=== PATIENT | female | born 1930 | race Caucasian/White ===

== ENCOUNTER → 2017-01-27 | Outpatient (REF) | payer MEDICARE, OTHER ==
[~2017-01-27] MED LIST: CALCTAB28 PO; CENTTAB12 PO; COUM2.5T11 PO; FEBU40TA PO; GABA-279 PO; HYDR-4267 PO; HYDR10T PO; LASI20TA PO; PRAM0.123 PO; REQU1TAB14 PO; TRAM50TA2 PO; VERA180C PO; VICO5TAB16 PO; VITA-112 PO
[2017-01-27 15:43] LABS: INR 2.58
== END ==
LOC: M LABDRAW1 15:00
PROVIDERS: ATTEND Physician Assistant
DX: M19.011 Primary osteoarthritis, right shoulder (principal); Z79.01 Long term (current) use of anticoagulants

== ENCOUNTER 2017-02-16 14:04 | Emergency (ER) | payer MEDICARE, OTHER ==
[~2017-02-16] VITALS: Ht 154.9 cm; Wt 89.8 kg
[2017-02-16] MEDS ORDERED: HYDR-3713 PO (14:36)
[2017-02-16] MEDS ORDERED: PRAD150C PO (14:36)
[2017-02-16] MEDS ORDERED: ROPI2TAB PO (14:36)
[2017-02-16] MEDS ORDERED: GABA-279 PO (14:36)
[2017-02-16 16:06] LABS: BASO % 0.3 % (0.0-1.0); EOS # 0.2 K/mm3 (0.0-0.50); EOS % 2.8 % (0.0-3.0); LARGE UNSTAINED CELL # 0.1 K/mm3 (0.0-0.4); LARGE UNSTAINED CELL % 0.9 % (0.0-4.0); LYMPH # 1.6 K/mm3 (1.5-4.5); MEAN CORPUSCULAR HEMOGLOBIN 31.2 pg (27.0-33.0); MEAN CORPUSCULAR HGB CONC 32.3 g/dl (32.0-36.5); MEAN CORPUSCULAR VOLUME 96.6 fl (80.0-96.0); MONO # 0.4 K/mm3 (0.0-0.8); NEUTROPHILS # 5.6 K/mm3 (1.8-7.7); NEUTROPHILS % 71.1 % (36.0-66.0); PLATELET COUNT, AUTOMATED 229 k/mm3 (150-450); WHITE BLOOD COUNT 7.9 K/mm3 (4.0-10.0)
--- NOTE | 2017-02-16 16:27 | REP ---
Delayed duplex ultrasound right lower extremity: Patient has swelling and redness of the right lower extremity. There are no comparison studies. At ultrasonography there is a palpable lump in the proximal right medial thigh. The deep veins demonstrate normal compression, normal Doppler color flow and normal Doppler waveforms with respiration and augmentation at multiple levels from the popliteal vein to the common femoral vein with the exception that the distal femoral vein could not be compressed because of pain and massive edema. However and there is a Doppler color flow and there are Doppler waveforms. There is no evidence of deep vein thrombus. However, the palpable lump in the proximal medial right thigh corresponds to a large thrombus within a collateral vein. 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 No deep vein thrombus is identified. Signed by Fuentes Jacome MD 02/16/2017 04:18 P
[2017-02-16 16:36] LABS: ALBUMIN 3.1 GM/DL (3.2-5.2); ALBUMIN/GLOBULIN RATIO 0.97 (1.00-1.93); ALKALINE PHOSPHATASE 87 U/L (45-117); ALT/SGPT 17 U/L (12-78); ANION GAP 8 MEQ/L (8-16); AST/SGOT 18 U/L (15-37); BILIRUBIN,DIRECT < 0.1 MG/DL (0.0-0.2); BILIRUBIN,TOTAL 0.3 MG/DL (0.2-1.0); BLOOD UREA NITROGEN 29 MG/DL (7-18); CALCIUM LEVEL 8.5 MG/DL (8.8-10.2); CARBON DIOXIDE LEVEL 28 MEQ/L (21-32); CHLORIDE LEVEL 109 MEQ/L (98-107); CREATININE FOR GFR 1.24 MG/DL (0.55-1.02); GLOMERULAR FILTRATION RATE 43.6 (>32); GLUCOSE, FASTING 98 MG/DL (83-110); POTASSIUM SERUM 4.2 MEQ/L (3.5-5.1); SODIUM LEVEL 145 MEQ/L (136-145); TOTAL PROTEIN 6.3 GM/DL (6.4-8.2)
[2017-02-16 17:08] VITALS: BP 166/88
== END 2017-02-16 17:16 | disposition home or self-care (01) ==
LOC: M ED 15:17
DX: I73.9 Peripheral vascular disease, unspecified (principal); I82.811 Embolism and thrombosis of superficial veins of right lower extremity; R06.02 Shortness of breath

== ENCOUNTER → 2018-06-26 | Outpatient (CLI) | payer MEDICARE, OTHER ==
[2018-06-26 17:05] LABS: HEMATOCRIT 31.8 % (36.0-47.0); HEMOGLOBIN 10.3 g/dl (12.0-15.5); MEAN CORPUSCULAR HEMOGLOBIN 32.3 pg (27.0-33.0); MEAN CORPUSCULAR HGB CONC 32.4 g/dl (32.0-36.5); MEAN CORPUSCULAR VOLUME 99.7 fl (80.0-96.0); PLATELET COUNT, AUTOMATED 215 10^3/uL (150-450); RED BLOOD COUNT 3.19 10^6/uL (4.00-5.40); RED CELL DISTRIBUTION WIDTH 14.1 % (11.5-14.5); WHITE BLOOD COUNT 8.5 10^3/uL (4.0-10.0)
[2018-06-26 17:06] LABS: INR 1.02; PROTHROMBIN TIME 13.5 SECONDS (12.1-14.4)
[2018-06-26 17:19] LABS: ALBUMIN 3.2 GM/DL (3.2-5.2); ALKALINE PHOSPHATASE 90 U/L (45-117); ALT/SGPT 22 U/L (12-78); ANION GAP 9 MEQ/L (8-16); AST/SGOT 17 U/L (7-37); BILIRUBIN,TOTAL 0.2 MG/DL (0.2-1.0); BLOOD UREA NITROGEN 53 MG/DL (7-18); CALCIUM LEVEL 9.8 MG/DL (8.8-10.2); CARBON DIOXIDE LEVEL 28 MEQ/L (21-32); CHLORIDE LEVEL 105 MEQ/L (98-107); CREATININE FOR GFR 2.02 MG/DL (0.55-1.30); GLOMERULAR FILTRATION RATE 24.7 (>32); GLUCOSE, FASTING 107 MG/DL (70-100); POTASSIUM SERUM 4.7 MEQ/L (3.5-5.1); SODIUM LEVEL 142 MEQ/L (136-145); TOTAL PROTEIN 6.4 GM/DL (6.4-8.2)
[2018-06-26 17:59] LABS: ERYTHROCYTE SEDIMENTATION RATE 50 mm/hr (0-42)
== END ==
LOC: M LAB 14:08
DX: Z01.818 Encounter for other preprocedural examination (principal); I48.91 Unspecified atrial fibrillation; R32 Unspecified urinary incontinence
CPT/HCPCS: 71046

== ENCOUNTER 2018-07-10 10:28 | Inpatient (IN) | payer MEDICARE, OTHER ==
[2018-07-10] MEDS ORDERED: EPINEPHrine 1MG/10ML SYRINGE 1.5IN As Ordered (12:04)
[2018-07-10] MEDS ORDERED: EPINEPHrine INJ 1 MG/ML 1ML AMP As Ordered (12:05)
[2018-07-10] MEDS ORDERED: MIDAZOLAM INJ 2 MG/2 ML VIAL (J2250) As Ordered ×2 (12:20→13:40)
[2018-07-10] MEDS ORDERED: fentaNYL 100 MCG/2 ML INJECTION (J3010) As Ordered ×3 (12:20→15:01)
[2018-07-10] MEDS: MIDAZOLAM INJ 2 MG/2 ML VIAL (J2250) IV ×2 (12:30→12:36)
[2018-07-10] MEDS: fentaNYL 100 MCG/2 ML INJECTION (J3010) IV ×5 (12:36→15:14)
[2018-07-10] MEDS ORDERED: hydrALAZINE INJ 20 MG/ML VIAL As Ordered (12:44)
[2018-07-10] MEDS: VANCOMYCIN HCL 1,000 MG, VIAL MATE ADAPTER 1 EACH in D5W 250 ML IV (12:45)
[2018-07-10] MEDS: hydrALAZINE INJ 20 MG/ML VIAL IV (12:48)
[2018-07-10] MEDS: ONDANSETRON 4MG/2ML VIAL (J2405) IV (12:52)
[2018-07-10] MEDS ORDERED: ONDANSETRON 4MG/2ML VIAL (J2405) As Ordered ×2 (12:53→14:33)
[2018-07-10] MEDS ORDERED: fentaNYL 100 MCG/2 ML INJECTION (J3010) IV (13:30)
[2018-07-10] MEDS ORDERED: BUPIVACAINE/DEXTROSE 0.75% 2 ML AMP As Ordered (13:40)
[2018-07-10] MEDS ORDERED: LIDOCAINE 2% INJ 100 MG/5 ML SDV (FOR ANES.) As Ordered (13:40)
[2018-07-10] MEDS ORDERED: GLYCOPYRROLATE INJ 0.2 MG/ML 2 ML VIAL As Ordered ×2 (13:40→14:36)
[2018-07-10] MEDS ORDERED: ROCURONIUM BROMIDE 50 MG/5 ML VIAL As Ordered (13:40)
[2018-07-10] MEDS ORDERED: PROPOFOL 200 MG/20 ML VIAL As Ordered (13:40)
[2018-07-10] MEDS: EPINEPHrine 1MG/ML INJ 30ML MD-VIAL As Ordered (13:50)
[2018-07-10] MEDS: CLINDAMYCIN INJ 900MG/6ML VIAL As Ordered (13:50)
[2018-07-10] MEDS: TRANEXAMIC ACID 100 MG/ML 10ML VIAL As Ordered (13:50)
[2018-07-10] MEDS: BUPIVACAINE LIPOSOME/PF 1.3% 20 ML VIAL (13.3MG/ML)(EXPAREL) As Ordered (13:51)
[2018-07-10] MEDS ORDERED: dexameTHASONE 10 MG/1 ML VIAL PRES.FREE (J1100) (14:01)
[2018-07-10] MEDS ORDERED: ROPIvacaine 0.5% 30 ML INJECTION (J2795 PER 1MG) (14:01)
[2018-07-10] MEDS ORDERED: dexameTHASONE 4 MG/ML 1ML VIAL (J1100) As Ordered (14:33)
[2018-07-10] MEDS ORDERED: NEOSTIGMINE 10 MG/10 ML VIAL (J2710) As Ordered (14:36)
[2018-07-10] MEDS ORDERED: MORPHINE 1MG/ML IN 0.9% NACL 100ML IV BAG As Ordered (15:06)
[2018-07-10] MEDS ORDERED: ACETAMINOPHEN TAB 650MG DOSE (2X325MG) PO (15:15)
[2018-07-10] MEDS ORDERED: ONDANSETRON 4MG/2ML VIAL (J2405) IV ×3 (15:15)
[2018-07-10] MEDS: LR 1,000 ML IV ×2 (15:15)
[2018-07-10] MEDS ORDERED: NALBUPHINE HCL 10 MG/ML AMP (J2300) IV (15:15)
[2018-07-10] MEDS ORDERED: PERCOCET 5MG/325MG TAB PO (15:15)
[2018-07-10] MEDS ORDERED: HYDROMORPHONE HCL 0.5 MG/ 0.5 ML SYRINGE (J1170 PER 1) IV (15:15)
[2018-07-10] MEDS ORDERED: diphenhydrAMINE INJ 50MG/ML VIAL (J1200) IV (15:15)
[2018-07-10] MEDS ORDERED: EPIDURAL/PCA KEYS XX (15:15)
[2018-07-10] MEDS ORDERED: FLEET ENEMA PR (15:15)
[2018-07-10] MEDS ORDERED: NALOXONE INJ 0.4 MG/1 ML VIAL (J2310) IV (15:15)
[2018-07-10] MEDS: MORPHINE 1MG/ML IN 0.9% NACL 100ML IV BAG IV (15:27)
[2018-07-10] MEDS: MULTIVITAMINS/MINERALS THERAP 1 TAB PO (19:16)
[2018-07-10] MEDS: VITAMIN D 1,000 INTERNATIONAL UNITS TABLET PO (19:17)
[2018-07-10 20:46] LABS: ANION GAP 9 MEQ/L (8-16); BLOOD UREA NITROGEN 37 MG/DL (7-18); CALCIUM LEVEL 8.7 MG/DL (8.8-10.2); CARBON DIOXIDE LEVEL 29 MEQ/L (21-32); CHLORIDE LEVEL 103 MEQ/L (98-107); GLOMERULAR FILTRATION RATE 34.9 (>32); GLUCOSE, FASTING 252 MG/DL (70-100); SODIUM LEVEL 141 MEQ/L (136-145)
[2018-07-10] MEDS: TROSPIUM 20 MG TAB PO (21:03)
[2018-07-10] MEDS: GABAPENTIN 100 MG CAP PO (21:03)
[2018-07-10] MEDS: rOPINIRole 1MG TAB PO (21:03)
[2018-07-11] MEDS: VANCOMYCIN HCL 1,000 MG, VIAL MATE ADAPTER 1 EACH in D5W 250 ML IV (01:11)
[2018-07-11] MEDS: LR 1,000 ML IV (02:02)
[2018-07-11] MEDS ORDERED: ONDANSETRON 4 MG TAB (S0181) PO (06:45)
[2018-07-11] MEDS ORDERED: PERCOCET 5MG/325MG TAB PO (06:45)
[2018-07-11 08:08] LABS: HEMATOCRIT 28.1 % (36.0-47.0); HEMOGLOBIN 9.4 g/dl (12.0-15.5); MEAN CORPUSCULAR HEMOGLOBIN 33.3 pg (27.0-33.0); MEAN CORPUSCULAR HGB CONC 33.5 g/dl (32.0-36.5); MEAN CORPUSCULAR VOLUME 99.6 fl (80.0-96.0); PLATELET COUNT, AUTOMATED 188 10^3/uL (150-450); RED BLOOD COUNT 2.82 10^6/uL (4.00-5.40); WHITE BLOOD COUNT 12.6 10^3/uL (4.0-10.0)
[2018-07-11 08:26] LABS: ANION GAP 7 MEQ/L (8-16); BLOOD UREA NITROGEN 41 MG/DL (7-18); CALCIUM LEVEL 8.5 MG/DL (8.8-10.2); CARBON DIOXIDE LEVEL 29 MEQ/L (21-32); CHLORIDE LEVEL 104 MEQ/L (98-107); CREATININE FOR GFR 1.42 MG/DL (0.55-1.30); GLOMERULAR FILTRATION RATE 37.2 (>32); GLUCOSE, FASTING 170 MG/DL (70-100); POTASSIUM SERUM 4.6 MEQ/L (3.5-5.1); SODIUM LEVEL 140 MEQ/L (136-145)
[2018-07-11] MEDS: MOM 30ML SUSPENSION UDC PO (08:52)
[2018-07-11] MEDS: GABAPENTIN 100 MG CAP PO (08:53)
[2018-07-11] MEDS: VITAMIN D 1,000 INTERNATIONAL UNITS TABLET PO (08:53)
[2018-07-11] MEDS: MULTIVITAMINS/MINERALS THERAP 1 TAB PO (08:53)
[2018-07-11] MEDS: SENOKOT S TAB PO (08:53)
[2018-07-11] MEDS: ALLOPURINOL 100 MG TAB PO (08:53)
[2018-07-11] MEDS: MIRALAX *UNIT DOSE* 17GM PACKET PO (08:53)
[2018-07-11] MEDS: PERCOCET 5MG/325MG TAB PO ×2 (08:57→14:32)
[2018-07-11] MEDS: ASPIRIN 325 MG TAB PO (14:31)
[2018-07-11] MEDS ORDERED: RIVAROXABAN 10 MG TAB (XARELTO) PO ×2 (18:00)
== END 2018-07-11 15:55 | DRG 470 ==
LOC: M OR 10:28 → M MS5PR 17:55
PROC: 0SRD0J9 Replacement of Left Knee Joint with Synthetic Substitute, Cemented, Open Approach (ICD-10-PCS; principal; 2018-07-10 12:59)
DX: M17.12 Unilateral primary osteoarthritis, left knee (principal); I48.0 Paroxysmal atrial fibrillation; I12.9 Hypertensive chronic kidney disease with stage 1 through stage 4 chronic kidney disease, or unspecified chronic kidney disease; N18.3 Chronic kidney disease, stage 3 (moderate); E66.01 Morbid (severe) obesity due to excess calories; M48.00 Spinal stenosis, site unspecified; G25.81 Restless legs syndrome; K21.9 Gastro-esophageal reflux disease without esophagitis; R32 Unspecified urinary incontinence; I35.0 Nonrheumatic aortic (valve) stenosis; R00.1 Bradycardia, unspecified; M10.9 Gout, unspecified; Z88.0 Allergy status to penicillin; Z88.1 Allergy status to other antibiotic agents; Z88.8 Allergy status to other drugs, medicaments and biological substances; Z91.048 Other nonmedicinal substance allergy status; Z79.82 Long term (current) use of aspirin; Z79.899 Other long term (current) drug therapy; Z96.641 Presence of right artificial hip joint; Z96.651 Presence of right artificial knee joint; Z90.710 Acquired absence of both cervix and uterus; Z79.01 Long term (current) use of anticoagulants

== ENCOUNTER 2018-07-11 16:00 | Inpatient (IN) | payer MEDICARE, OTHER ==
[~2018-07-11 16:00] MED LIST changes: +ACETAMINOPHEN TAB 650MG DOSE (2X325MG) PO; +BISACODYL 5 MG TAB PO; -CALCTAB28 PO; -CENTTAB12 PO; -COUM2.5T11 PO; -FEBU40TA PO; -GABA-279 PO; -HYDR-4267 PO; -HYDR10T PO; -LASI20TA PO; +MOM 30ML SUSPENSION UDC PO; +ONDANSETRON 4 MG TAB (S0181) PO; +PERCOCET 5MG/325MG TAB PO; -PRAM0.123 PO; -REQU1TAB14 PO; -TRAM50TA2 PO; -VERA180C PO; -VICO5TAB16 PO; -VITA-112 PO
[2018-07-11] MEDS: CALCIUM/VITAMIN D 500 MG TAB PO (21:15)
[2018-07-11] MEDS: LACTOBACILLUS ACIDOPHILUS CAP (BACID) PO (21:15)
[2018-07-11] MEDS: rOPINIRole 1MG TAB PO (21:16)
[2018-07-11] MEDS: PERCOCET 5MG/325MG TAB PO (21:16)
[2018-07-11] MEDS: GABAPENTIN 100 MG CAP PO (21:16)
[2018-07-11] MEDS: TROSPIUM 20 MG TAB PO (21:16)
[2018-07-11] MEDS: SENNA 8.6 MG TAB (SENOKOT) PO (21:16)
[2018-07-11] MEDS: DOCUSATE SODIUM 100 MG CAP PO (21:17)
[2018-07-12 07:24] LABS: BASO % 0.1 % (0.0-1.0); EOS % 0.1 % (0.0-3.0); HEMATOCRIT 25.1 % (36.0-47.0); HEMOGLOBIN 8.3 g/dl (12.0-15.5); IMMATURE GRANULOCYTE % 0.7 % (0-3.0); LYMPH # 1.2 10^3/uL (1.5-4.5); LYMPH % 7.8 % (24.0-44.0); MEAN CORPUSCULAR HEMOGLOBIN 32.8 pg (27.0-33.0); MEAN CORPUSCULAR HGB CONC 33.1 g/dl (32.0-36.5); MEAN CORPUSCULAR VOLUME 99.2 fl (80.0-96.0); MONO # 0.8 10^3/uL (0.0-0.8); MONO % 5.6 % (0.0-5.0); NEUTROPHILS # 12.7 10^3/uL (1.8-7.7); NEUTROPHILS % 85.7 % (36.0-66.0); PLATELET COUNT, AUTOMATED 180 10^3/uL (150-450); RED BLOOD COUNT 2.53 10^6/uL (4.00-5.40); RED CELL DISTRIBUTION WIDTH 14.3 % (11.5-14.5); WHITE BLOOD COUNT 14.8 10^3/uL (4.0-10.0)
[2018-07-12] MEDS: VITAMIN D 1,000 INTERNATIONAL UNITS TABLET PO (07:52)
[2018-07-12] MEDS: MULTIVITAMINS/MINERALS THERAP 1 TAB PO (07:52)
[2018-07-12] MEDS: DOCUSATE SODIUM 100 MG CAP PO ×2 (07:52→21:09)
[2018-07-12] MEDS: GABAPENTIN 100 MG CAP PO ×2 (07:52→21:09)
[2018-07-12] MEDS: LACTOBACILLUS ACIDOPHILUS CAP (BACID) PO ×2 (07:53→21:09)
[2018-07-12] MEDS: ASPIRIN 325 MG TAB PO (07:53)
[2018-07-12] MEDS: CALCIUM/VITAMIN D 500 MG TAB PO ×2 (07:53→21:09)
[2018-07-12] MEDS: FAMOTIDINE 20 MG TAB PO (07:53)
[2018-07-12] MEDS: MIRALAX *UNIT DOSE* 17GM PACKET PO (07:54)
[2018-07-12] MEDS: PERCOCET 5MG/325MG TAB PO ×2 (07:54→21:09)
[2018-07-12] MEDS: ALLOPURINOL 100 MG TAB PO (07:55)
[2018-07-12 08:02] LABS: ALBUMIN 2.6 GM/DL (3.2-5.2); ALBUMIN/GLOBULIN RATIO 0.87 (1.00-1.93); ALKALINE PHOSPHATASE 64 U/L (45-117); ALT/SGPT 16 U/L (12-78); ANION GAP 6 MEQ/L (8-16); AST/SGOT 15 U/L (7-37); BILIRUBIN,TOTAL 0.2 MG/DL (0.2-1.0); BLOOD UREA NITROGEN 62 MG/DL (7-18); CALCIUM LEVEL 8.4 MG/DL (8.8-10.2); CARBON DIOXIDE LEVEL 29 MEQ/L (21-32); CHLORIDE LEVEL 106 MEQ/L (98-107); CREATININE FOR GFR 1.79 MG/DL (0.55-1.30); GLOMERULAR FILTRATION RATE 28.5 (>32); GLUCOSE, FASTING 100 MG/DL (70-100); POTASSIUM SERUM 4.5 MEQ/L (3.5-5.1); SODIUM LEVEL 141 MEQ/L (136-145); TOTAL PROTEIN 5.6 GM/DL (6.4-8.2)
[2018-07-12 12:54] LABS: BASO % 0.2 % (0.0-1.0); EOS # 0.1 10^3/uL (0.0-0.50); EOS % 0.3 % (0.0-3.0); HEMATOCRIT 27.4 % (36.0-47.0); HEMOGLOBIN 8.9 g/dl (12.0-15.5); IMMATURE GRANULOCYTE % 0.7 % (0-3.0); LYMPH # 1.9 10^3/uL (1.5-4.5); LYMPH % 12.2 % (24.0-44.0); MEAN CORPUSCULAR HGB CONC 32.5 g/dl (32.0-36.5); MEAN CORPUSCULAR VOLUME 101.5 fl (80.0-96.0); MONO # 0.9 10^3/uL (0.0-0.8); MONO % 5.6 % (0.0-5.0); NEUTROPHILS # 12.5 10^3/uL (1.8-7.7); PLATELET COUNT, AUTOMATED 198 10^3/uL (150-450); RED CELL DISTRIBUTION WIDTH 14.7 % (11.5-14.5); WHITE BLOOD COUNT 15.5 10^3/uL (4.0-10.0)
[2018-07-12 13:14] LABS: ANION GAP 8 MEQ/L (8-16); BLOOD UREA NITROGEN 66 MG/DL (7-18); CALCIUM LEVEL 8.7 MG/DL (8.8-10.2); CARBON DIOXIDE LEVEL 29 MEQ/L (21-32); CHLORIDE LEVEL 105 MEQ/L (98-107); CREATININE FOR GFR 1.75 MG/DL (0.55-1.30); GLOMERULAR FILTRATION RATE 29.2 (>32); GLUCOSE, FASTING 86 MG/DL (70-100); POTASSIUM SERUM 4.5 MEQ/L (3.5-5.1); SODIUM LEVEL 142 MEQ/L (136-145)
[2018-07-12] MEDS: BISACODYL 5 MG TAB PO (13:30)
[2018-07-12] MEDS: SENNA 8.6 MG TAB (SENOKOT) PO ×2 (13:30→21:09)
[2018-07-12] MEDS: TROSPIUM 20 MG TAB PO (21:09)
[2018-07-12] MEDS: rOPINIRole 1MG TAB PO (21:09)
[2018-07-13 06:06] LABS: KETONE, URINE AUTO RFX NEGATIVE (NEGATIVE); LEUKOCYTE ESTERASE UR AUTO RFX NEGATIVE (NEGATIVE); NITRITE, URINE AUTO RFX NEGATIVE (NEGATIVE); RBC, URINE AUTO RFX 0 /HPF (0-3); SPECIFIC GRAVITY UR AUTO RFX 1.004 (1.002-1.035); SQUAM EPITHELIAL CELL UR AURFX 0 /HPF (0-6); WBC, URINE AUTO RFX 0 /HPF (0-3)
[2018-07-13] MEDS: PERCOCET 5MG/325MG TAB PO ×3 (06:39→21:46)
[2018-07-13] MEDS: BISACODYL 10 MG SUPP PR (06:45)
[2018-07-13 08:21] LABS: BASO % 0.3 % (0.0-1.0); EOS # 0.3 10^3/uL (0.0-0.50); EOS % 2.3 % (0.0-3.0); HEMATOCRIT 24.9 % (36.0-47.0); HEMOGLOBIN 8.1 g/dl (12.0-15.5); IMMATURE GRANULOCYTE % 0.5 % (0-3.0); LYMPH # 2.5 10^3/uL (1.5-4.5); LYMPH % 22.5 % (24.0-44.0); MEAN CORPUSCULAR HEMOGLOBIN 32.8 pg (27.0-33.0); MEAN CORPUSCULAR HGB CONC 32.5 g/dl (32.0-36.5); MEAN CORPUSCULAR VOLUME 100.8 fl (80.0-96.0); MONO # 0.8 10^3/uL (0.0-0.8); MONO % 7.1 % (0.0-5.0); NEUTROPHILS # 7.5 10^3/uL (1.8-7.7); NEUTROPHILS % 67.3 % (36.0-66.0); PLATELET COUNT, AUTOMATED 177 10^3/uL (150-450); RED BLOOD COUNT 2.47 10^6/uL (4.00-5.40); RED CELL DISTRIBUTION WIDTH 14.6 % (11.5-14.5); WHITE BLOOD COUNT 11.2 10^3/uL (4.0-10.0)
[2018-07-13 08:43] LABS: ANION GAP 8 MEQ/L (8-16); BLOOD UREA NITROGEN 62 MG/DL (7-18); CALCIUM LEVEL 8.3 MG/DL (8.8-10.2); CARBON DIOXIDE LEVEL 29 MEQ/L (21-32); CHLORIDE LEVEL 106 MEQ/L (98-107); CREATININE FOR GFR 1.59 MG/DL (0.55-1.30); GLOMERULAR FILTRATION RATE 32.6 (>32); GLUCOSE, FASTING 83 MG/DL (70-100); MAGNESIUM LEVEL 2.1 MG/DL (1.8-2.4); POTASSIUM SERUM 4.6 MEQ/L (3.5-5.1); SODIUM LEVEL 143 MEQ/L (136-145)
[2018-07-13] MEDS: DOCUSATE SODIUM 100 MG CAP PO ×2 (09:09→21:46)
[2018-07-13] MEDS: CALCIUM/VITAMIN D 500 MG TAB PO ×2 (09:09→21:46)
[2018-07-13] MEDS: MULTIVITAMINS/MINERALS THERAP 1 TAB PO (09:09)
[2018-07-13] MEDS: MIRALAX *UNIT DOSE* 17GM PACKET PO (09:09)
[2018-07-13] MEDS: VITAMIN D 1,000 INTERNATIONAL UNITS TABLET PO (09:10)
[2018-07-13] MEDS: LACTOBACILLUS ACIDOPHILUS CAP (BACID) PO ×2 (09:10→21:46)
[2018-07-13] MEDS: ASPIRIN 325 MG TAB PO (09:10)
[2018-07-13] MEDS: FAMOTIDINE 20 MG TAB PO (09:10)
[2018-07-13] MEDS: ALLOPURINOL 100 MG TAB PO (09:10)
[2018-07-13] MEDS: GABAPENTIN 100 MG CAP PO ×2 (09:10→21:45)
[2018-07-13] MEDS: FLEET ENEMA PR (13:00)
[2018-07-13] MEDS: ONDANSETRON 4MG/2ML VIAL (J2405) IM (14:43)
[2018-07-13] MEDS: SENNA 8.6 MG TAB (SENOKOT) PO (21:46)
[2018-07-13] MEDS: rOPINIRole 1MG TAB PO (21:46)
[2018-07-13] MEDS: TROSPIUM 20 MG TAB PO (21:46)
[2018-07-14 08:01] LABS: HEMATOCRIT 24.2 % (36.0-47.0); HEMOGLOBIN 7.7 g/dl (12.0-15.5); MEAN CORPUSCULAR HEMOGLOBIN 32.5 pg (27.0-33.0); MEAN CORPUSCULAR HGB CONC 31.8 g/dl (32.0-36.5); MEAN CORPUSCULAR VOLUME 102.1 fl (80.0-96.0); PLATELET COUNT, AUTOMATED 165 10^3/uL (150-450); RED BLOOD COUNT 2.37 10^6/uL (4.00-5.40); RED CELL DISTRIBUTION WIDTH 14.8 % (11.5-14.5); WHITE BLOOD COUNT 10.2 10^3/uL (4.0-10.0)
[2018-07-14 08:22] LABS: ALBUMIN 2.3 GM/DL (3.2-5.2); ALBUMIN/GLOBULIN RATIO 0.79 (1.00-1.93); ALKALINE PHOSPHATASE 56 U/L (45-117); ALT/SGPT 18 U/L (12-78); ANION GAP 6 MEQ/L (8-16); AST/SGOT 13 U/L (7-37); BILIRUBIN,TOTAL 0.4 MG/DL (0.2-1.0); BLOOD UREA NITROGEN 62 MG/DL (7-18); CALCIUM LEVEL 8.1 MG/DL (8.8-10.2); CARBON DIOXIDE LEVEL 29 MEQ/L (21-32); CHLORIDE LEVEL 107 MEQ/L (98-107); CREATININE FOR GFR 1.67 MG/DL (0.55-1.30); FERRITIN 111 NG/ML (8-252); GLOMERULAR FILTRATION RATE 30.8 (>32); GLUCOSE, FASTING 95 MG/DL (70-100); IRON (FE) 32 UG/DL (50-170); PERCENT SATURATION 19.8 % (13.2-45.0); POTASSIUM SERUM 4.6 MEQ/L (3.5-5.1); SODIUM LEVEL 142 MEQ/L (136-145); TOTAL IRON BINDING CAPACITY 162 UG/DL (250-450); TOTAL PROTEIN 5.2 GM/DL (6.4-8.2)
[2018-07-14 08:48] LABS: FOLATE 22.5 NG/ML (>5.4)
[2018-07-14 08:48] LABS: VITAMIN B12 LEVEL 633 PG/ML (247-911)
[2018-07-14] MEDS: MIRALAX *UNIT DOSE* 17GM PACKET PO (08:52)
[2018-07-14] MEDS: ALLOPURINOL 100 MG TAB PO (08:52)
[2018-07-14] MEDS: VITAMIN D 1,000 INTERNATIONAL UNITS TABLET PO (08:52)
[2018-07-14] MEDS: ASPIRIN 325 MG TAB PO (08:52)
[2018-07-14] MEDS: LACTOBACILLUS ACIDOPHILUS CAP (BACID) PO (08:53)
[2018-07-14] MEDS: DOCUSATE SODIUM 100 MG CAP PO (08:53)
[2018-07-14] MEDS: GABAPENTIN 100 MG CAP PO (08:53)
[2018-07-14] MEDS: MULTIVITAMINS/MINERALS THERAP 1 TAB PO (08:53)
[2018-07-14] MEDS: CALCIUM/VITAMIN D 500 MG TAB PO (08:53)
[2018-07-14] MEDS: FAMOTIDINE 20 MG TAB PO (08:53)
[2018-07-14] MEDS: NS 1,000 ML IV (10:45)
[2018-07-14] MEDS: MAGNESIUM CITRATE 300 ML BTL PO (12:41)
[2018-07-14] MEDS: CALCIUM CARBONATE 500 MG CHEW U/D PO (14:37)
[2018-07-14 15:22] LABS: ALBUMIN 2.8 GM/DL (3.2-5.2); ALBUMIN/GLOBULIN RATIO 0.78 (1.00-1.93); ALKALINE PHOSPHATASE 67 U/L (45-117); ALT/SGPT 23 U/L (12-78); ANION GAP 7 MEQ/L (8-16); AST/SGOT 20 U/L (7-37); BILIRUBIN,TOTAL 0.4 MG/DL (0.2-1.0); BLOOD UREA NITROGEN 62 MG/DL (7-18); CALCIUM LEVEL 8.6 MG/DL (8.8-10.2); CARBON DIOXIDE LEVEL 27 MEQ/L (21-32); CHLORIDE LEVEL 105 MEQ/L (98-107); CK-MB VALUE MASS 1.5 NG/ML (<3.6); CPK CREATINE PHOSPHOKINASE 75 U/L (26-192); CREATININE FOR GFR 1.79 MG/DL (0.55-1.30); GLOMERULAR FILTRATION RATE 28.5 (>32); GLUCOSE, FASTING 104 MG/DL (70-100); POTASSIUM SERUM 4.4 MEQ/L (3.5-5.1); SODIUM LEVEL 139 MEQ/L (136-145); TOTAL PROTEIN 6.4 GM/DL (6.4-8.2); TROPONIN I < 0.02 NG/ML (< 0.10)
[2018-07-14 17:40] LABS: IMMEDIATE SPIN CROSSMATCH 1 2
== END 2018-07-14 15:50 | disposition short-term general hospital (02) | DRG 560 ==
LOC: M PM&R 16:00
DX: Z47.1 Aftercare following joint replacement surgery (principal); D62 Acute posthemorrhagic anemia; I13.10 Hypertensive heart and chronic kidney disease without heart failure, with stage 1 through stage 4 chronic kidney disease, or unspecified chronic kidney disease; I48.0 Paroxysmal atrial fibrillation; M10.9 Gout, unspecified; G25.81 Restless legs syndrome; N32.81 Overactive bladder; D72.829 Elevated white blood cell count, unspecified; K21.9 Gastro-esophageal reflux disease without esophagitis; M48.00 Spinal stenosis, site unspecified; R07.2 Precordial pain; I35.0 Nonrheumatic aortic (valve) stenosis; K59.00 Constipation, unspecified; R32 Unspecified urinary incontinence; N18.3 Chronic kidney disease, stage 3 (moderate); Z79.82 Long term (current) use of aspirin; Z79.899 Other long term (current) drug therapy; Z88.0 Allergy status to penicillin; Z88.1 Allergy status to other antibiotic agents; Z91.048 Other nonmedicinal substance allergy status; Z88.8 Allergy status to other drugs, medicaments and biological substances; Z96.653 Presence of artificial knee joint, bilateral; Z90.710 Acquired absence of both cervix and uterus; Z96.641 Presence of right artificial hip joint

== ENCOUNTER 2018-07-14 15:51 | Inpatient (IN) | payer MEDICARE, OTHER ==
[~2018-07-14 15:51] MED LIST changes: +BISACODYL 10 MG SUPP PR; -BISACODYL 5 MG TAB PO; +FLEET ENEMA PR; -ONDANSETRON 4 MG TAB (S0181) PO; -PERCOCET 5MG/325MG TAB PO
[2018-07-14] MEDS ORDERED: hydrALAZINE INJ 20 MG/ML VIAL IV (17:45)
[2018-07-14 19:19] LABS: CK-MB VALUE MASS 1.2 NG/ML (<3.6); CPK CREATINE PHOSPHOKINASE 52 U/L (26-192); TROPONIN I < 0.02 NG/ML (< 0.10)
[2018-07-14] MEDS: DOCUSATE SODIUM 100 MG CAP PO (20:54)
[2018-07-14] MEDS: rOPINIRole 2MG TAB PO (20:54)
[2018-07-14] MEDS: GABAPENTIN 100 MG CAP PO (20:55)
[2018-07-14] MEDS: LACTOBACILLUS ACIDOPHILUS CAP (BACID) PO (20:55)
[2018-07-14] MEDS: **hydrALAZINE** 10 MG TAB PO (20:55)
[2018-07-14] MEDS: SENNA 8.6 MG TAB (SENOKOT) PO (20:55)
[2018-07-14] MEDS: TROSPIUM 20 MG TAB PO (20:55)
[2018-07-14] MEDS: PERCOCET 5MG/325MG TAB PO (20:59)
[2018-07-14 21:26] LABS: FREE THYROXINE INDEX 2.5 % (1.3-4.8); T UPTAKE 36 % (30-39); THYROID STIMULATING HORMONE 0.758 uIU/ML (0.358-3.740)
[2018-07-14 22:58] LABS: HEMOGLOBIN 9.5 g/dl (12.0-15.5)
[2018-07-15 04:43] LABS: BASO % 0.2 % (0.0-1.0); EOS # 0.2 10^3/uL (0.0-0.50); EOS % 1.8 % (0.0-3.0); HEMATOCRIT 28.2 % (36.0-47.0); HEMOGLOBIN 9.3 g/dl (12.0-15.5); IMMATURE GRANULOCYTE % 0.4 % (0-3.0); LYMPH % 17.8 % (24.0-44.0); MEAN CORPUSCULAR HEMOGLOBIN 31.2 pg (27.0-33.0); MEAN CORPUSCULAR VOLUME 94.6 fl (80.0-96.0); MONO # 0.8 10^3/uL (0.0-0.8); MONO % 6.7 % (0.0-5.0); NEUTROPHILS # 8.3 10^3/uL (1.8-7.7); NEUTROPHILS % 73.1 % (36.0-66.0); PLATELET COUNT, AUTOMATED 166 10^3/uL (150-450); RED BLOOD COUNT 2.98 10^6/uL (4.00-5.40); RED CELL DISTRIBUTION WIDTH 17.2 % (11.5-14.5); WHITE BLOOD COUNT 11.3 10^3/uL (4.0-10.0)
[2018-07-15 05:08] LABS: ANION GAP 5 MEQ/L (8-16); BLOOD UREA NITROGEN 58 MG/DL (7-18); CALCIUM LEVEL 8.3 MG/DL (8.8-10.2); CARBON DIOXIDE LEVEL 30 MEQ/L (21-32); CHLORIDE LEVEL 106 MEQ/L (98-107); CK-MB VALUE MASS < 1.0 NG/ML (<3.6); CPK CREATINE PHOSPHOKINASE 34 U/L (26-192); CREATININE FOR GFR 1.41 MG/DL (0.55-1.30); GLOMERULAR FILTRATION RATE 37.5 (>32); GLUCOSE, FASTING 101 MG/DL (70-100); MAGNESIUM LEVEL 2.5 MG/DL (1.8-2.4); MB/CK RELATIVE INDEX 2.94 (< OR =4); POTASSIUM SERUM 4.5 MEQ/L (3.5-5.1); SODIUM LEVEL 141 MEQ/L (136-145); TROPONIN I < 0.02 NG/ML (< 0.10)
[2018-07-15] MEDS: **hydrALAZINE** 10 MG TAB PO ×3 (06:00→21:38)
[2018-07-15] MEDS: ALLOPURINOL 100 MG TAB PO (08:31)
[2018-07-15] MEDS: VITAMIN D 1,000 INTERNATIONAL UNITS TABLET PO (08:31)
[2018-07-15] MEDS: GABAPENTIN 100 MG CAP PO ×2 (08:31→21:37)
[2018-07-15] MEDS: DOCUSATE SODIUM 100 MG CAP PO ×2 (08:31→21:37)
[2018-07-15] MEDS: ASPIRIN 325 MG TAB PO (08:31)
[2018-07-15] MEDS: LACTOBACILLUS ACIDOPHILUS CAP (BACID) PO ×2 (08:31→21:38)
[2018-07-15] MEDS: FAMOTIDINE 20 MG TAB PO (08:31)
[2018-07-15] MEDS: ENOXAPARIN 30 MG/0.3 ML SYR (J1650) SC (08:32)
[2018-07-15] MEDS: PERCOCET 5MG/325MG TAB PO ×3 (08:35→23:47)
[2018-07-15 10:37] LABS: CPK CREATINE PHOSPHOKINASE 34 U/L (26-192); TROPONIN I 0.02 NG/ML (< 0.10)
[2018-07-15 10:38] LABS: CK-MB VALUE MASS < 1.0 NG/ML (<3.6); MB/CK RELATIVE INDEX 2.94 (< OR =4)
[2018-07-15] MEDS: BISACODYL 10 MG SUPP PR ×2 (11:06→21:00)
[2018-07-15] MEDS: TROSPIUM 20 MG TAB PO (21:37)
[2018-07-15] MEDS: rOPINIRole 2MG TAB PO (21:37)
[2018-07-15] MEDS: SENNA 8.6 MG TAB (SENOKOT) PO (21:40)
[2018-07-16] MEDS: **hydrALAZINE** 10 MG TAB PO ×3 (06:13→18:25)
[2018-07-16 06:16] LABS: BASO % 0.3 % (0.0-1.0); EOS # 0.5 10^3/uL (0.0-0.50); EOS % 4.6 % (0.0-3.0); HEMATOCRIT 30.4 % (36.0-47.0); HEMOGLOBIN 10.1 g/dl (12.0-15.5); IMMATURE GRANULOCYTE % 0.6 % (0-3.0); LYMPH # 2.1 10^3/uL (1.5-4.5); LYMPH % 19.5 % (24.0-44.0); MEAN CORPUSCULAR HGB CONC 33.2 g/dl (32.0-36.5); MEAN CORPUSCULAR VOLUME 96.2 fl (80.0-96.0); MONO # 0.6 10^3/uL (0.0-0.8); MONO % 5.8 % (0.0-5.0); NEUTROPHILS # 7.5 10^3/uL (1.8-7.7); NEUTROPHILS % 69.2 % (36.0-66.0); PLATELET COUNT, AUTOMATED 178 10^3/uL (150-450); RED BLOOD COUNT 3.16 10^6/uL (4.00-5.40); RED CELL DISTRIBUTION WIDTH 16.2 % (11.5-14.5); WHITE BLOOD COUNT 10.8 10^3/uL (4.0-10.0)
[2018-07-16 06:41] LABS: MAGNESIUM LEVEL 2.4 MG/DL (1.8-2.4)
[2018-07-16] MEDS: VITAMIN D 1,000 INTERNATIONAL UNITS TABLET PO (10:13)
[2018-07-16] MEDS: BISACODYL 10 MG SUPP PR ×2 (10:13→21:34)
[2018-07-16] MEDS: LACTOBACILLUS ACIDOPHILUS CAP (BACID) PO ×2 (10:13→21:32)
[2018-07-16] MEDS: MOM 30ML SUSPENSION UDC PO (10:13)
[2018-07-16] MEDS: DOCUSATE SODIUM 100 MG CAP PO ×2 (10:13→21:33)
[2018-07-16] MEDS: FAMOTIDINE 20 MG TAB PO (10:13)
[2018-07-16] MEDS: GABAPENTIN 100 MG CAP PO ×2 (10:13→21:34)
[2018-07-16] MEDS: ASPIRIN 325 MG TAB PO (10:13)
[2018-07-16] MEDS: ENOXAPARIN 30 MG/0.3 ML SYR (J1650) SC ×2 (10:14→10:20)
[2018-07-16] MEDS: ALLOPURINOL 100 MG TAB PO (10:14)
[2018-07-16] MEDS: RIVAROXABAN 15 MG TAB (XARELTO) PO (18:25)
[2018-07-16] MEDS: MAGNESIUM CITRATE 300 ML BTL PO (18:25)
[2018-07-16] MEDS ORDERED: ONDANSETRON 4MG/2ML VIAL (J2405) IV (20:45)
[2018-07-16] MEDS: rOPINIRole 2MG TAB PO (21:32)
[2018-07-16] MEDS: SENNA 8.6 MG TAB (SENOKOT) PO (21:32)
[2018-07-16] MEDS: MIRALAX *UNIT DOSE* 17GM PACKET PO (21:32)
[2018-07-16] MEDS: PERCOCET 5MG/325MG TAB PO (21:33)
[2018-07-16] MEDS: TROSPIUM 20 MG TAB PO (21:34)
[2018-07-16] MEDS: METHYLNALTREXONE BROMIDE 12 MG/0.6 ML VIAL (RELISTOR) SC (21:35)
[2018-07-16] MEDS: NS 1,000 ML IV (21:35)
[2018-07-16 21:54] LABS: TROPONIN I < 0.02 NG/ML (< 0.10)
[2018-07-17] MEDS: **hydrALAZINE** 10 MG TAB PO ×3 (00:21→12:11)
[2018-07-17 05:57] LABS: BASO % 0.2 % (0.0-1.0); EOS # 0.2 10^3/uL (0.0-0.50); EOS % 2.1 % (0.0-3.0); HEMATOCRIT 27.3 % (36.0-47.0); HEMOGLOBIN 8.9 g/dl (12.0-15.5); IMMATURE GRANULOCYTE % 0.9 % (0-3.0); LYMPH # 1.5 10^3/uL (1.5-4.5); LYMPH % 15.5 % (24.0-44.0); MEAN CORPUSCULAR HEMOGLOBIN 31.8 pg (27.0-33.0); MEAN CORPUSCULAR HGB CONC 32.6 g/dl (32.0-36.5); MEAN CORPUSCULAR VOLUME 97.5 fl (80.0-96.0); MONO # 0.7 10^3/uL (0.0-0.8); MONO % 6.8 % (0.0-5.0); NEUTROPHILS # 7.2 10^3/uL (1.8-7.7); NEUTROPHILS % 74.5 % (36.0-66.0); PLATELET COUNT, AUTOMATED 198 10^3/uL (150-450); RED CELL DISTRIBUTION WIDTH 15.8 % (11.5-14.5); WHITE BLOOD COUNT 9.6 10^3/uL (4.0-10.0)
[2018-07-17 06:21] LABS: ANION GAP 11 MEQ/L (8-16); BLOOD UREA NITROGEN 37 MG/DL (7-18); CALCIUM LEVEL 7.7 MG/DL (8.8-10.2); CARBON DIOXIDE LEVEL 24 MEQ/L (21-32); CHLORIDE LEVEL 108 MEQ/L (98-107); CREATININE FOR GFR 1.12 MG/DL (0.55-1.30); GLOMERULAR FILTRATION RATE 48.9 (>32); GLUCOSE, FASTING 81 MG/DL (70-100); MAGNESIUM LEVEL 2.6 MG/DL (1.8-2.4); POTASSIUM SERUM 4.3 MEQ/L (3.5-5.1); SODIUM LEVEL 143 MEQ/L (136-145)
[2018-07-17] MEDS: DOCUSATE SODIUM 100 MG CAP PO (09:00)
[2018-07-17] MEDS: BISACODYL 10 MG SUPP PR (09:00)
[2018-07-17] MEDS: GABAPENTIN 100 MG CAP PO (09:26)
[2018-07-17] MEDS: ALLOPURINOL 100 MG TAB PO (09:26)
[2018-07-17] MEDS: FAMOTIDINE 20 MG TAB PO (09:26)
[2018-07-17] MEDS: LACTOBACILLUS ACIDOPHILUS CAP (BACID) PO (09:26)
[2018-07-17] MEDS: VITAMIN D 1,000 INTERNATIONAL UNITS TABLET PO (09:26)
[2018-07-17] MEDS: PERCOCET 5MG/325MG TAB PO (09:30)
== END 2018-07-17 13:36 | DRG 309 ==
LOC: M ICU 15:51 → M MSPAV 07-15 12:38
PROC: 30233N1 Transfusion of Nonautologous Red Blood Cells into Peripheral Vein, Percutaneous Approach (ICD-10-PCS; principal; 2018-07-14)
DX: I48.0 Paroxysmal atrial fibrillation (principal); D62 Acute posthemorrhagic anemia; Z96.653 Presence of artificial knee joint, bilateral; K59.00 Constipation, unspecified; I35.0 Nonrheumatic aortic (valve) stenosis; N18.3 Chronic kidney disease, stage 3 (moderate); I13.10 Hypertensive heart and chronic kidney disease without heart failure, with stage 1 through stage 4 chronic kidney disease, or unspecified chronic kidney disease; R07.9 Chest pain, unspecified; G25.81 Restless legs syndrome; K21.9 Gastro-esophageal reflux disease without esophagitis; R00.1 Bradycardia, unspecified; D64.9 Anemia, unspecified; M10.9 Gout, unspecified; R32 Unspecified urinary incontinence; D72.829 Elevated white blood cell count, unspecified; Z79.82 Long term (current) use of aspirin; Z79.899 Other long term (current) drug therapy; Z88.0 Allergy status to penicillin; Z88.1 Allergy status to other antibiotic agents; Z90.710 Acquired absence of both cervix and uterus; Z91.048 Other nonmedicinal substance allergy status

== ENCOUNTER 2018-07-17 13:40 | Inpatient (IN) | payer MEDICARE, OTHER ==
[~2018-07-17 13:40] MED LIST changes: +MAALOX 30 ML SUSP *UDC PO; +METHYLNALTREXONE BROMIDE 12 MG/0.6 ML VIAL (RELISTOR) SC; +ONDANSETRON 4 MG TAB (S0181) PO; +ONDANSETRON 4MG/2ML VIAL (J2405) IM
[2018-07-17] MEDS: BISACODYL 5 MG TAB PO (15:06)
[2018-07-17] MEDS: MIRALAX *UNIT DOSE* 17GM PACKET PO (15:06)
[2018-07-17] MEDS: CALCIUM/VITAMIN D 500 MG TAB PO ×2 (15:07→21:37)
[2018-07-17] MEDS: MULTIVITAMINS/MINERALS THERAP 1 TAB PO (15:07)
[2018-07-17] MEDS: RIVAROXABAN 15 MG TAB (XARELTO) PO (17:05)
[2018-07-17] MEDS: **hydrALAZINE** 10 MG TAB PO (17:06)
[2018-07-17] MEDS: PERCOCET 5MG/325MG TAB PO ×2 (17:07→21:43)
[2018-07-17] MEDS: rOPINIRole 2MG TAB PO (21:36)
[2018-07-17] MEDS: SENNA 8.6 MG TAB (SENOKOT) PO (21:37)
[2018-07-17] MEDS: LACTOBACILLUS ACIDOPHILUS CAP (BACID) PO (21:37)
[2018-07-17] MEDS: TROSPIUM 20 MG TAB PO (21:37)
[2018-07-17] MEDS: GABAPENTIN 100 MG CAP PO (21:37)
[2018-07-17] MEDS: DOCUSATE SODIUM 100 MG CAP PO (21:37)
[2018-07-18] MEDS: **hydrALAZINE** 10 MG TAB PO ×4 (00:50→18:04)
[2018-07-18 06:19] LABS: BASO % 0.4 % (0.0-1.0); EOS # 0.4 10^3/uL (0.0-0.50); EOS % 4.8 % (0.0-3.0); HEMATOCRIT 27.8 % (36.0-47.0); IMMATURE GRANULOCYTE % 1.3 % (0-3.0); LYMPH # 1.9 10^3/uL (1.5-4.5); LYMPH % 23.3 % (24.0-44.0); MEAN CORPUSCULAR HEMOGLOBIN 31.8 pg (27.0-33.0); MEAN CORPUSCULAR HGB CONC 32.4 g/dl (32.0-36.5); MEAN CORPUSCULAR VOLUME 98.2 fl (80.0-96.0); MONO # 0.7 10^3/uL (0.0-0.8); MONO % 8.5 % (0.0-5.0); NEUTROPHILS # 5.1 10^3/uL (1.8-7.7); NEUTROPHILS % 61.7 % (36.0-66.0); PLATELET COUNT, AUTOMATED 186 10^3/uL (150-450); RED BLOOD COUNT 2.83 10^6/uL (4.00-5.40); RED CELL DISTRIBUTION WIDTH 15.5 % (11.5-14.5); WHITE BLOOD COUNT 8.2 10^3/uL (4.0-10.0)
[2018-07-18 06:46] LABS: ALBUMIN 2.3 GM/DL (3.2-5.2); ALBUMIN/GLOBULIN RATIO 0.74 (1.00-1.93); ALKALINE PHOSPHATASE 62 U/L (45-117); ALT/SGPT 15 U/L (12-78); ANION GAP 8 MEQ/L (8-16); AST/SGOT 15 U/L (7-37); BILIRUBIN,TOTAL 0.6 MG/DL (0.2-1.0); BLOOD UREA NITROGEN 35 MG/DL (7-18); CALCIUM LEVEL 8.3 MG/DL (8.8-10.2); CARBON DIOXIDE LEVEL 29 MEQ/L (21-32); CHLORIDE LEVEL 106 MEQ/L (98-107); CREATININE FOR GFR 1.27 MG/DL (0.55-1.30); GLOMERULAR FILTRATION RATE 42.3 (>32); GLUCOSE, FASTING 86 MG/DL (70-100); SODIUM LEVEL 143 MEQ/L (136-145); TOTAL PROTEIN 5.4 GM/DL (6.4-8.2)
[2018-07-18] MEDS: MIRALAX *UNIT DOSE* 17GM PACKET PO (09:18)
[2018-07-18] MEDS: BISACODYL 5 MG TAB PO (09:19)
[2018-07-18] MEDS: FAMOTIDINE 20 MG TAB PO (09:19)
[2018-07-18] MEDS: GABAPENTIN 100 MG CAP PO ×2 (09:20→20:58)
[2018-07-18] MEDS: CALCIUM/VITAMIN D 500 MG TAB PO ×2 (09:20→20:58)
[2018-07-18] MEDS: ALLOPURINOL 100 MG TAB PO (09:20)
[2018-07-18] MEDS: PERCOCET 5MG/325MG TAB PO ×3 (09:20→20:58)
[2018-07-18] MEDS: DOCUSATE SODIUM 100 MG CAP PO (09:20)
[2018-07-18] MEDS: VITAMIN D 1,000 INTERNATIONAL UNITS TABLET PO (09:21)
[2018-07-18] MEDS: LACTOBACILLUS ACIDOPHILUS CAP (BACID) PO (09:21)
[2018-07-18] MEDS: MULTIVITAMINS/MINERALS THERAP 1 TAB PO (09:21)
[2018-07-18] MEDS: METOCLOPRAMIDE 10 MG TAB PO ×3 (12:38→20:58)
[2018-07-18] MEDS: RIVAROXABAN 15 MG TAB (XARELTO) PO (17:37)
[2018-07-18] MEDS: rOPINIRole 2MG TAB PO (20:57)
[2018-07-18] MEDS: SENNA 8.6 MG TAB (SENOKOT) PO (20:57)
[2018-07-18] MEDS: TROSPIUM 20 MG TAB PO (20:57)
[2018-07-19] MEDS: **hydrALAZINE** 10 MG TAB PO ×5 (00:25→23:15)
[2018-07-19] MEDS: PERCOCET 5MG/325MG TAB PO ×2 (06:34→21:27)
[2018-07-19 06:39] LABS: HEMATOCRIT 28.5 % (36.0-47.0); HEMOGLOBIN 9.3 g/dl (12.0-15.5); MEAN CORPUSCULAR HEMOGLOBIN 31.4 pg (27.0-33.0); MEAN CORPUSCULAR HGB CONC 32.6 g/dl (32.0-36.5); MEAN CORPUSCULAR VOLUME 96.3 fl (80.0-96.0); PLATELET COUNT, AUTOMATED 205 10^3/uL (150-450); RED BLOOD COUNT 2.96 10^6/uL (4.00-5.40); RED CELL DISTRIBUTION WIDTH 15.1 % (11.5-14.5); WHITE BLOOD COUNT 8.6 10^3/uL (4.0-10.0)
[2018-07-19] MEDS: METOCLOPRAMIDE 10 MG TAB PO ×4 (07:54→21:00)
[2018-07-19] MEDS: CALCIUM/VITAMIN D 500 MG TAB PO ×2 (09:27→21:00)
[2018-07-19] MEDS: MULTIVITAMINS/MINERALS THERAP 1 TAB PO (09:27)
[2018-07-19] MEDS: ALLOPURINOL 100 MG TAB PO (09:27)
[2018-07-19] MEDS: GABAPENTIN 100 MG CAP PO ×2 (09:27→21:00)
[2018-07-19] MEDS: DOCUSATE SODIUM 100 MG CAP PO (09:28)
[2018-07-19] MEDS: VITAMIN D 1,000 INTERNATIONAL UNITS TABLET PO (09:28)
[2018-07-19] MEDS: RIVAROXABAN 15 MG TAB (XARELTO) PO (17:20)
[2018-07-19] MEDS: SENNA 8.6 MG TAB (SENOKOT) PO (21:00)
[2018-07-19] MEDS: rOPINIRole 2MG TAB PO (21:14)
[2018-07-19] MEDS: TROSPIUM 20 MG TAB PO (21:14)
[2018-07-20] MEDS: **hydrALAZINE** 10 MG TAB PO ×3 (05:29→17:32)
[2018-07-20] MEDS: PERCOCET 5MG/325MG TAB PO ×3 (06:04→20:46)
[2018-07-20 07:10] LABS: HEMATOCRIT 27.4 % (36.0-47.0); HEMOGLOBIN 8.9 g/dl (12.0-15.5); MEAN CORPUSCULAR HEMOGLOBIN 31.9 pg (27.0-33.0); MEAN CORPUSCULAR HGB CONC 32.5 g/dl (32.0-36.5); MEAN CORPUSCULAR VOLUME 98.2 fl (80.0-96.0); PLATELET COUNT, AUTOMATED 223 10^3/uL (150-450); RED BLOOD COUNT 2.79 10^6/uL (4.00-5.40); RED CELL DISTRIBUTION WIDTH 14.9 % (11.5-14.5); WHITE BLOOD COUNT 9.5 10^3/uL (4.0-10.0)
[2018-07-20] MEDS: CALCIUM/VITAMIN D 500 MG TAB PO ×2 (08:49→20:46)
[2018-07-20] MEDS: DOCUSATE SODIUM 100 MG CAP PO (08:49)
[2018-07-20] MEDS: ALLOPURINOL 100 MG TAB PO (08:49)
[2018-07-20] MEDS: MULTIVITAMINS/MINERALS THERAP 1 TAB PO (08:49)
[2018-07-20] MEDS: VITAMIN D 1,000 INTERNATIONAL UNITS TABLET PO (08:49)
[2018-07-20] MEDS: METOCLOPRAMIDE 10 MG TAB PO ×2 (08:49→20:45)
[2018-07-20] MEDS: GABAPENTIN 100 MG CAP PO ×2 (08:50→20:45)
[2018-07-20] MEDS: RIVAROXABAN 15 MG TAB (XARELTO) PO (17:31)
[2018-07-20] MEDS: TROSPIUM 20 MG TAB PO (20:45)
[2018-07-20] MEDS: rOPINIRole 2MG TAB PO (20:45)
[2018-07-20] MEDS: SENNA 8.6 MG TAB (SENOKOT) PO (21:00)
[2018-07-21] MEDS: **hydrALAZINE** 10 MG TAB PO ×4 (00:15→17:13)
[2018-07-21] MEDS: PERCOCET 5MG/325MG TAB PO ×3 (03:22→18:23)
[2018-07-21 07:30] LABS: HEMATOCRIT 31.1 % (36.0-47.0); HEMOGLOBIN 10.1 g/dl (12.0-15.5); MEAN CORPUSCULAR HGB CONC 32.5 g/dl (32.0-36.5); MEAN CORPUSCULAR VOLUME 98.4 fl (80.0-96.0); PLATELET COUNT, AUTOMATED 277 10^3/uL (150-450); RED BLOOD COUNT 3.16 10^6/uL (4.00-5.40); RED CELL DISTRIBUTION WIDTH 15.1 % (11.5-14.5); WHITE BLOOD COUNT 11.8 10^3/uL (4.0-10.0)
[2018-07-21] MEDS: MULTIVITAMINS/MINERALS THERAP 1 TAB PO (07:52)
[2018-07-21] MEDS: METOCLOPRAMIDE 10 MG TAB PO (07:52)
[2018-07-21] MEDS: GABAPENTIN 100 MG CAP PO (07:53)
[2018-07-21] MEDS: DOCUSATE SODIUM 100 MG CAP PO (07:53)
[2018-07-21] MEDS: ALLOPURINOL 100 MG TAB PO (07:53)
[2018-07-21] MEDS: VITAMIN D 1,000 INTERNATIONAL UNITS TABLET PO (07:53)
[2018-07-21] MEDS: CALCIUM/VITAMIN D 500 MG TAB PO (07:53)
[2018-07-21 08:40] LABS: ANION GAP 9 MEQ/L (8-16); BLOOD UREA NITROGEN 25 MG/DL (7-18); CALCIUM LEVEL 8.9 MG/DL (8.8-10.2); CARBON DIOXIDE LEVEL 28 MEQ/L (21-32); CHLORIDE LEVEL 104 MEQ/L (98-107); CREATININE FOR GFR 1.23 MG/DL (0.55-1.30); GLOMERULAR FILTRATION RATE 43.9 (>32); GLUCOSE, FASTING 87 MG/DL (70-100); MAGNESIUM LEVEL 1.6 MG/DL (1.8-2.4); POTASSIUM SERUM 4.6 MEQ/L (3.5-5.1); SODIUM LEVEL 141 MEQ/L (136-145)
[2018-07-21 12:04] LABS: BASO % 0.3 % (0.0-1.0); EOS # 0.3 10^3/uL (0.0-0.50); EOS % 2.3 % (0.0-3.0); HEMATOCRIT 29.7 % (36.0-47.0); HEMOGLOBIN 9.6 g/dl (12.0-15.5); IMMATURE GRANULOCYTE % 1.7 % (0-3.0); LYMPH # 1.7 10^3/uL (1.5-4.5); LYMPH % 15.1 % (24.0-44.0); MEAN CORPUSCULAR HEMOGLOBIN 32.1 pg (27.0-33.0); MEAN CORPUSCULAR HGB CONC 32.3 g/dl (32.0-36.5); MEAN CORPUSCULAR VOLUME 99.3 fl (80.0-96.0); MONO # 0.7 10^3/uL (0.0-0.8); MONO % 6.3 % (0.0-5.0); NEUTROPHILS # 8.4 10^3/uL (1.8-7.7); NEUTROPHILS % 74.3 % (36.0-66.0); PLATELET COUNT, AUTOMATED 247 10^3/uL (150-450); RED BLOOD COUNT 2.99 10^6/uL (4.00-5.40); RED CELL DISTRIBUTION WIDTH 15.2 % (11.5-14.5); WHITE BLOOD COUNT 11.4 10^3/uL (4.0-10.0)
[2018-07-21] MEDS: RIVAROXABAN 15 MG TAB (XARELTO) PO (17:13)
== END 2018-07-21 18:38 | disposition home health service (06) | DRG 560 ==
LOC: M PM&R 13:40
DX: Z47.1 Aftercare following joint replacement surgery (principal); I50.32 Chronic diastolic (congestive) heart failure; I13.0 Hypertensive heart and chronic kidney disease with heart failure and stage 1 through stage 4 chronic kidney disease, or unspecified chronic kidney disease; R53.81 Other malaise; G25.81 Restless legs syndrome; I48.0 Paroxysmal atrial fibrillation; K21.9 Gastro-esophageal reflux disease without esophagitis; M10.9 Gout, unspecified; N18.3 Chronic kidney disease, stage 3 (moderate); I35.0 Nonrheumatic aortic (valve) stenosis; N32.81 Overactive bladder; D64.9 Anemia, unspecified; K59.00 Constipation, unspecified; M48.00 Spinal stenosis, site unspecified; R00.1 Bradycardia, unspecified; R32 Unspecified urinary incontinence; Z96.641 Presence of right artificial hip joint; Z88.8 Allergy status to other drugs, medicaments and biological substances; Z96.653 Presence of artificial knee joint, bilateral; Z90.710 Acquired absence of both cervix and uterus; Z79.82 Long term (current) use of aspirin; Z79.01 Long term (current) use of anticoagulants; Z79.899 Other long term (current) drug therapy; Z91.048 Other nonmedicinal substance allergy status; Z88.0 Allergy status to penicillin; Z88.1 Allergy status to other antibiotic agents; G62.9 Polyneuropathy, unspecified

== ENCOUNTER → 2019-01-25 | Outpatient (CLI) | payer MEDICARE, OTHER ==
[~2019-01-25] MED LIST changes: -ACETAMINOPHEN TAB 650MG DOSE (2X325MG) PO; +ALLO100T PO; +ASPI1CHW2 PO; +ASPI1TAB20 PO; +Acetaminophen Tab PO; -BISACODYL 10 MG SUPP PR; +CALCTAB28 PO; +CENTCHW3 PO; +CENTTAB12 PO; +COLA100C5 PO; +COUM2.5T17 PO; +DILT30TA PO; +FAMO20TA PO; +FEBU40TA PO; -FLEET ENEMA PR; +FLOM0.4C39 PO; +GABA-1171 PO; +GLUCTAB6 PO; +HYDR-3713 PO; +HYDR-3911 PO; +HYDR-643 PO; +HYDR10TAB PO; +LASI20TA3 PO; +LOSA100T50 PO; +LOVE1INJ2 SC; -MAALOX 30 ML SUSP *UDC PO; -METHYLNALTREXONE BROMIDE 12 MG/0.6 ML VIAL (RELISTOR) SC; -MOM 30ML SUSPENSION UDC PO; +ONDA4TAB5 PO; +ONDA4VLL IM; -ONDANSETRON 4 MG TAB (S0181) PO; -ONDANSETRON 4MG/2ML VIAL (J2405) IM; +PEG1POW PO; +PERC5TAB12 PO; +PERCOCET PO; +PRAD150C PO; +PRAM0.126 PO; +PROBCAP14 PO; +REQU1TAB14 PO; +ROPI2TAB PO; +SENN18TA PO; +TRAM50TA2 PO; +TROS20TA3 PO; +VALS1TAB47 PO; +VERA180C PO; +VICO5TAB16 PO; +VITA-112 PO; +VITAD1000T PO; +XARE10TA PO; +XARE15TA PO
--- NOTE | 2019-01-25 12:49 | REP ---
Three-phase bone scan of the knees: History: Left total knee. Left knee pain times 6 weeks. Knee replacement in June of 2008. Comparison bone scan images are from December 18, 2013. Technique: 21.3 mCi technetium 99m MDP is injected and standard three-phase bone scan imaging of the knees is acquired. Scintigraphic findings: Anterior and posterior flow study is unremarkable except that there is subtle asymmetry and hyperemia in the periarticular soft tissues about the left knee. Blood pool images also show hyperemia regionally about the left knee prosthesis. The patient is status post bilateral knee arthroplasty and arthroplasty component photopenic areas are seen as expected. There is some mild prosthesis/bone interface uptake associated with the knee arthroplasty components bilaterally, left a little more prominently than right. This is consistent with the left knee being replaced more recently. It is not focal. There is no evidence to suggest loosening or infection. Impression: Mildly increased prosthesis bone interface uptake associated with the bilateral knee arthroplasties, left a little more prominently than right. There is no scintigraphic evidence to suggest loosening or infection. Electronically Signed by Raymundo Phillips MD 01/25/2019 01:41 P
--- NOTE | 2019-01-25 13:11 | REP ---
MRI lumbar spine without contrast: History: Low back pain. Intervertebral disc degeneration. Comparison is made with abdomen radiographs from July 12, 2018. Technique: Sagittal and axial T1 and T2-weighted scans are acquired in the usual fashion with and without fat saturation. Sequences include spin echo, turbo spin-echo, and STIR imaging sequences. MRI findings: [employer] images demonstrate a severe levoconvex lumbar scoliosis which is visible on the radiographs from July 12, 2018. It appears that laminectomies have been performed throughout the lumbar spine. Normal caliber aorta. No extra vertebral abnormalities observed. Axial and sagittal images at L5-S1 show a fairly preserved L5-S1 disc. There is mild bilateral facet hypertrophy. No thecal sac compression is appreciated at L5-S1. No neural foraminal narrowing. At L4-5, the posterior disc margin contains a right posterior fairly broad-based disc protrusion which compresses the thecal sac and slightly impinges the exiting right fifth lumbar root. There is facet hypertrophy bilaterally. The scoliosis produces exaggerated disc degeneration on the left side of the canal with hypertrophic sclerosis and spurring. There is a vacuum phenomenon seen here radiographically. There is mild central canal stenosis at L4-5. There is severe left-sided neural foraminal narrowing due to discogenic spurring and to some degree facet hypertrophy. There is minimal neural foraminal narrowing on the right at this level. At L3-4, there is mild diffuse disc bulging and posterior osteophytic ridging. There is bilateral neural foraminal narrowing associated with the scoliosis. Somewhat small canal size is seen overall but there has been a laminectomy dorsally. At L2-3, there is no evidence of central canal stenosis. Mild diffuse disc bulging is present. There is right and mild left-sided neural foraminal narrowing. At L1-2, there is partial fusion of the disc. There is a right posterior osteophyte indenting the thecal sac. No overall central canal stenosis. The caudate equine elements are located to the right side of the thecal sac at this level associated with the scoliosis. There is right-sided neural foraminal narrowing. At T12-L1, there is minimal diffuse disc bulging. No other finding. Impression: Severe levoconvex scoliosis. Advanced degenerative disc disease at multiple levels with facet arthropathy. Status post prior lumbar laminectomy at each lumbar level. Multilevel neural foraminal narrowing as above. Mild central canal stenosis and right posterior disc protrusion L4-5. Electronically Signed by Raymundo Phillips MD 01/25/2019 01:42 P
== END ==
LOC: M RAD 09:47
PROVIDERS: ATTEND Orthopaedic Surgery
DX: Z96.653 Presence of artificial knee joint, bilateral (principal); M51.36 Other intervertebral disc degeneration, lumbar region; M51.26 Other intervertebral disc displacement, lumbar region
CPT/HCPCS: 72148; 78315; A9503